=== PATIENT | female | born 1985 ===

== ENCOUNTER 2020-05-19 21:50 | Emergency (ER) | payer SELFPAY ==
[~2020-05-19] VITALS: Ht 167.6 cm; Wt 60.0 kg
[2020-05-19 22:27] VITALS: BP 116/70
--- NOTE | 2020-05-19 23:13 | PHYS DOC ---
Past Medical History Past Medical History: No Pertinent History Past Surgical History: , Other Additional Past Surgical Histo: Kidney stents Smoking Status: Current Every Day Smoker Alcohol Use: None General Adult EDM: Chief Complaint: ABSCESS HPI: HPI: Patient is a 34 year old [f__sex] who presents with [] Review of Systems: Review of Systems: Constitutional: Denies fever or chills. [] Eyes: Denies change in visual acuity. [] HENT: Denies nasal congestion or sore throat. [] Respiratory: Denies cough or shortness of breath. [] Cardiovascular: Denies chest pain or edema. [] GI: Denies abdominal pain, nausea, vomiting, bloody stools or diarrhea. [] : Denies dysuria. [] Musculoskeletal: Denies back pain or joint pain. [] Integument: Denies rash. [] Neurologic: Denies headache, focal weakness or sensory changes. [] Endocrine: Denies polyuria or polydipsia. [] Lymphatic: Denies swollen glands. [] Psychiatric: Denies depression or anxiety. [] Heart Score: Risk Factors: Risk Factors: DM, Current or recent (<one month) smoker, HTN, HLP, family history of CAD, obesity. Risk Scores: Score 0 - 3: 2.5% MACE over next 6 weeks - Discharge Home Score 4 - 6: 20.3% MACE over next 6 weeks - Admit for Clinical Observation Score 7 - 10: 72.7% MACE over next 6 weeks - Early Invasive Strategies Physical Exam: PE: Constitutional: Well developed, well nourished, no acute distress, non-toxic appearance. [] HENT: Normocephalic, atraumatic, bilateral external ears normal, oropharynx moist, no oral exudates, nose normal. [] Eyes: PERRLA, EOMI, conjunctiva normal, no discharge. [] Neck: Normal range of motion, no tenderness, supple, no stridor. [] Cardiovascular:Heart rate regular rhythm, no murmur [] Lungs & Thorax: Bilateral breath sounds clear to auscultation [] Abdomen: Bowel sounds normal, soft, no tenderness, no masses, no pulsatile masses. [] Skin: Warm, dry, no erythema, no rash. [] Back: No tenderness, no CVA tenderness. [] Extremities: No tenderness, no cyanosis, no clubbing, ROM intact, no edema. [] Neurologic: Alert and oriented X 3, normal motor function, normal sensory function, no focal deficits noted. [] Psychologic: Affect normal, judgement normal, mood normal. [] Current Patient Data: Vital Signs: Vital Signs Date Time Temp Pulse Resp B/P (MAP) Pulse Ox O2 Delivery O2 Flow Rate FiO2 05/19/20 22:27 98.1 77 18 116/70 (85) 99 Room Air 98.1 EKG: EKG: [] Radiology/Procedures: Radiology/Procedures: [] Course & Med Decision Making: Course & Med Decision Making Pertinent Labs and Imaging studies reviewed. (See chart for details) [] Dragon Disclaimer: [employer] Disclaimer: This electronic medical record was generated, in whole or in part, using a voice recognition dictation system. Departure Departure Impression: Primary Impression: Shingles rash Qualified Codes: B02.9 - Zoster without complications Additional Impression: Abscess Disposition: 01 DC HOME SELF CARE/HOMELESS Condition: IMPROVED Referrals: NO PCP (PCP) Patient Instructions: Abscess, Shingles Additional Instructions: Take medications as prescribed, see your doctor soon, return to the emergency department for worsening symptoms or concerns. EMERGENCY DEPARTMENT GENERAL DISCHARGE INSTRUCTIONS Thank you for coming to [facility] Emergency Department (ED) today and trusting us with you care. We trust that you had a positive experience in our Emergency Department. If you wish to speak to the department management, you may call the Director at [phone]. YOUR FOLLOW UP INSTRUCTIONS ARE FOLLOWS: 1. Do you have a private Doctor? If you do not have a private doctor, please ask for a resource list of physicians or clinics that may be able to assist you with follow up care. 2. The Emergency Physicain has interpreted your x-rays. The X-Ray specialist will also review them. If there is a change in the findings, you will be notified in 48 hours when at all possible. 3. A lab test or culture has been done, your results will be reviewed and you will be notified if you need a change in treatment. ADDITIONAL INSTRUCTIONS AND INFORMATION: 1. Your care today has been supervised by a physician who is specially trained in emergency care. Many problems require more than one evaluation for a complete diagnosis and treatment. We recommend that you schedule your follow up appointment as recommended to ensure complete treatment of you illness or injury. If you are unable to obtain follow up care and continue to have a problem, or if your condition worsens, we recommend that you return to the ED. 2. We are not able to safely determine your condition over the phone nor are we able to give sound medical advice over the phone. For these safety reasons, if you call for medical advice we will ask you to come to the ED for further evaluation. 3. If you have any questions regarding these discharge instructions please call the ED at [phone]. SAFETY INFORMATION: In the interest of safety, wellness, and injury prevention; we encourage you to wear your sealbelt, if you smoke; quite smoking, and we encourage family to use a protective helmet for bicycling and other sporting events that present an increased risk for head injury. IF YOUR SYMPTOMS WORSEN OR NEW SYMPTOMS DEVELOP, OR YOU HAVE CONCERNS ABOUT YOUR CONDITION; OR IF YOUR CONDITION WORSENS WHILE YOU ARE WAITING FOR YOUR FOLLOW UP APPOINTMENT; EITHER CONTACT YOUR PRIMARY CARE DOCTOR, THE PHYSICIAN WHOSE NAME AND NUMBER YOU WERE GIVEN, OR RETURN TO THE ED IMMEDIATELY. Scripts Mupirocin (MUPIROCIN OINTMENT) 22 Gm Oint...g. 1 GUY TP TID for WOUND CARE, #1 TUBE 0 Refills Prov: MARIA TERESA CASTRO APRN 05/20/20 Sulfamethoxazole/Trimethoprim (BACTRIM DS TABLET) 1 Each Tablet 1 TAB PO BID for SKIN INFECTION for 10 Days, #20 TAB 0 Refills Prov: MARIA TERESA CASTRO APRN 05/20/20 Acyclovir (ACYCLOVIR) 800 Mg Tablet 1 TAB PO 5XDAY for 10 Days, #50 TAB 0 Refills Prov: MARIA TERESA CASTRO APRN 05/20/20 MARIA TERESA CASTRO APRN May 19, 2020 23:13
[2020-05-20] MEDS ORDERED: MUPI22OI2 TP (00:16)
[2020-05-20] MEDS ORDERED: ACYC800T PO (00:16)
[2020-05-20] MEDS ORDERED: SULF1TAB24 PO (00:16)
[2020-05-20] MEDS ORDERED: MUPIROCIN 2 % TOPICAL CREAM 30GM TUBE. TP SCH (01:00)
[2020-05-20] MEDS ORDERED: SMZ/TMP 800/160MG TABLET. PO ONE (01:00)
[2020-05-20] MEDS ORDERED: ACYCLOVIR 200 MG CAPSULE. PO SCH (01:00)
== END 2020-05-20 00:36 | disposition home or self-care (01) ==
LOC: ER 21:50
DX: L02.415 Cutaneous abscess of right lower limb (principal); B02.9 Zoster without complications; F17.200 Nicotine dependence, unspecified, uncomplicated; Z86.14 Personal history of Methicillin resistant Staphylococcus aureus infection
CPT/HCPCS: 99284

== ENCOUNTER 2020-06-01 14:29 | Emergency (ER) | payer SELFPAY ==
[~2020-06-01] VITALS: Ht 167.6 cm; Wt 59.0 kg
[~2020-06-01 14:29] MED LIST: ACYC800T PO; MUPI22OI2 TP; SULF1TAB24 PO
[2020-06-01 15:10] VITALS: BP 129/76
--- NOTE | 2020-06-01 15:23 | ED.ADGEN ---
Past Medical History Past Medical History: Kidney Infection, Kidney Stone Past Surgical History: , Other Additional Past Surgical Histo: Kidney stents Smoking Status: Current Every Day Smoker Alcohol Use: None Drug Use: None General Adult EDM: Chief Complaint: MECHANICAL FALL HPI: HPI: Patient is a 34 year old female who presents to the emergency department with complaints of bruising, swelling, and pain to her right orbit, right shoulder/upper arm pain, left hip/femur pain and multiple abrasions and bruises after falling 3 to 4 feet off of a porch last night. Patient states she landed on her right side, she denies any loss of consciousness, neck pain, vomiting, abdominal pain, confusion, vision changes, dizziness, or shortness of breath. She states that her last tetanus shot was less than 5 years ago. Patient states that her foot got caught up in a hose that was on the porch and that is what caused her fall. She currently rates her pain a 10 out of 10 on the pain scale, she denies any alleviating or exacerbating factors. The patient states that she has felt nauseated but denies any numbness, tingling, weakness or vomiting. Review of Systems: Review of Systems: Complete ROS is negative unless otherwise noted in HPI. Allergies: Allergies: Allergies Coded Allergies Type Severity Reaction Last Updated Verified No Known Drug Allergies 05/20/20 No Physical Exam: PE: See Above Constitutional: Well developed, well nourished, no acute distress, non-toxic appearance. [] HENT: Normocephalic, atraumatic, bilateral external ears normal, nose normal. [] Eyes: PERRLA, EOMI, conjunctiva normal, no discharge; tenderness to palpation over right lateral orbit. [] Neck: Normal range of motion, no tenderness, supple, no stridor. [] Cardiovascular:Heart rate regular rhythm Lungs & Thorax: Respirations even and unlabored, no retractions, no respiratory distress Skin: Warm, dry; abrasions noted to bilateral arms near the elbows; Right inner elbow abrasion has surrounding erythema, warmth, and edema concerning for infection; no active bleeding; hematomas noted to the right orbit, bilateral hips, and bilateral elbows. [] Back: No tenderness Extremities: Right shoulder: lateral tenderness to palpation without crepitus or obvious deformity, ROM limited due to pain, no edema, sensation intact Right humerus: proximal tenderness to palpation, no obvious deformity, no edema Right elbow; lateral tenderness to palpation without obvious deformity or crepitus, no edema, PMS intact Left elbow: Lateral TTP, no crepitus or obvious deformity, no cyanosis, no edema, PMS intact Left hip: lateral tenderness to palpation without obvious deformit y/shortening/rotation, no crepitus, PMS intact Left femur: muscluar TTP, no crepitus or obvious deformity, Neurologic: Alert and oriented X 3, normal motor function, normal sensory function, no focal deficits noted. [] Psychologic: Affect normal, judgement normal, mood normal. [] Current Patient Data: Labs: Laboratory Tests Test 06/01/20 15:38 06/01/20 15:42 Urine Collection Type Unknown Urine Color Yellow Urine Clarity Cloudy Urine pH 7.0 (<5.0-8.0) Urine Specific Portal 1.025 (1.000-1.030) Urine Protein Negative mg/dL (NEG-TRACE) Urine Glucose (UA) Negative mg/dL (NEG) Urine Ketones (Stick) 15 mg/dL (NEG) Urine Blood Negative (NEG) Urine Nitrite Negative (NEG) Urine Bilirubin Small (NEG) Urine Urobilinogen Dipstick 2.0 mg/dL (0.2 mg/dL) Urine Leukocyte Esterase Small (NEG) Urine RBC 0 /HPF (0-2) Urine WBC 5-10 /HPF (0-4) Urine Squamous Epithelial Cells Many /LPF Urine Amorphous Sediment Present /HPF Urine Bacteria Many /HPF (0-FEW) Urine Mucus Mod /LPF POC Urine HCG, Qualitative Hcg negative (Negative) Vital Signs: Vital Signs Date Time Temp Pulse Resp B/P (MAP) Pulse Ox O2 Delivery O2 Flow Rate FiO2 06/01/20 15:10 88 16 129/76 (93) 99 Room Air EKG: EKG: [] Heart Score: Risk Factors: Risk Factors: DM, Current or recent (<one month) smoker, HTN, HLP, family history of CAD, obesity. Risk Scores: Score 0 - 3: 2.5% MACE over next 6 weeks - Discharge Home Score 4 - 6: 20.3% MACE over next 6 weeks - Admit for Clinical Observation Score 7 - 10: 72.7% MACE over next 6 weeks - Early Invasive Strategies Radiology/Procedures: Radiology/Procedures: PROCEDURE: SHOULDER 2+V RIGHT EXAM: XR SHOULDER_RIGHT 2+ VIEWS, XR HUMERUS_RT 2 VIEWS, XR BILATERAL HIP (WITH OR WITHOUT PELVIS) LEFT 2 VIEWS 06/01/2020 3:09 PM CLINICAL INDICATION: Right shoulder and humerus pain after fall, left hip pain after fall COMPARISON: None TECHNIQUE: 2 views of the right humerus, 3 views of the right shoulder, one view the pelvis and 2 views of the left hip FINDINGS: Right humerus: No acute fracture. Alignment is normal. Soft tissues normal. Right shoulder: No acute fracture. Alignment is normal. Acromioclavicular and glenohumeral joints are maintained. Visualized right hemithorax is normal. Left hip: No acute fracture. The hip joint spaces are maintained. There is no pubic symphysis or sacroiliac joint widening. Lower lumbar spine is unremarkable. IMPRESSION: No acute osseous abnormality of the right shoulder or humerus, or left hip. PROCEDURE: CT MAXILLOFACIAL WO CONTRAST Exam: CT maxillofacial without contrast INDICATION: Right orbital edema and burning after fall off report shouldn't last night TECHNIQUE: Sequential axial images through the face obtained without IV contrast. Sagittal and coronal reformatted images were reconstructed from the axial data and reviewed. Comparisons: None FINDINGS: Visualized intracranial structures are unremarkable. There is mild preseptal edema overlying the right orbit. Globes and intraorbital contents are normal. Paranasal sinuses and mastoid air cells are well-pneumatized. No acute fractures are identified. IMPRESSION: Mild preseptal edema overlying the right orbit. Underlying globe and intraorbital contents are normal. No acute osseous abnormality identified. [] Course & Med Decision Making: Course & Med Decision Making Pertinent Labs and Imaging studies reviewed. (See chart for details) 34-year-old female presented to the ER with multiple complaints after a reported fall from a porch last night. Xrays of the Right shoulder, R humerus, and left hip were negative for any acute fracture or findings. Ct maxillofacial was also negative for any acute findings or fracture. UA was concerning for a UTI The abrasion on the right inner forearm appeared to be more of a burn than an abrasion. I advised the patient that the area appears infected and looks more like a burn than an abrasion. I advised the patient that I felt her injuries are not consistent with a fall and asked the patient if she is safe at this time. PT denies any abuse and reports that she is safe. Prescriptions were written for cephalexin, naproxen, and flexeril. PT was encouraged to apply ice to sore areas as needed for comfort and encouraged to follow up with Dr. Gibson if pain persisted. Recommend follow up with her PCP for reevaluation of her UTI. PT verbalized an understanding of home care, medications, follow-up, and return to ED instructions and was in agreement with the plan of care. []I have reviewed the PA/AUTOMATIC TELLER MACHINE SERVICER's note and Plan of Care. I was available for consultation as needed during the patient's visit in the emergency department. I agree with the clinical impression, plans and disposition. Dragon Disclaimer: [employer] Disclaimer: This electronic medical record was generated, in whole or in part, using a voice recognition dictation system. Departure Departure Impression: Primary Impression: Multiple contusions Additional Impressions: Right shoulder pain Left hip pain Periorbital hematoma of right eye Fall UTI (urinary tract infection) Disposition: 01 DC HOME SELF CARE/HOMELESS Condition: STABLE Referrals: NO PCP (PCP) CORY GIBSON II, MD Patient Instructions: Contusion, [id number], Eye Contusion, Hip Pain, Shoulder Pain, [id number], Urinary Tract Infection, [id number] Additional Instructions: Fill prescription(s) and use as directed. Avoid bladder irritants such as caffeine, carbonation, and spicy foods. Increase clear fluids. Recommend application of ice, elevation, and rest of affected extremities.Follow up with your primary care doctor this week about UTI. Follow up with Dr. Gibson for for persistent joint pain. Return to the ER if symptoms worse or fever develops. Scripts Cephalexin (CEPHALEXIN) 500 Mg Capsule 1 CAP PO QID for 7 Days, #28 CAP 0 Refills Prov: SYLVESTER STILES THERMAL TECHNICIAN 06/01/20 Cyclobenzaprine Hcl (CYCLOBENZAPRINE HCL) 10 Mg Tablet 1 TAB PO TID for 10 Days, #30 TAB Prov: SYLVESTER STILES THERMAL TECHNICIAN 06/01/20 Naproxen (NAPROXEN) 500 Mg Tablet 1 TAB PO BID PRN for PAIN for 10 Days, #20 TAB 0 Refills Prov: SYLVESTER STILES THERMAL TECHNICIAN 06/01/20 Problem Qualifiers Additional Impressions: Right shoulder pain Chronicity: acute Qualified Codes: M25.511 - Pain in right shoulder Fall Encounter type: initial encounter Qualified Codes: W19.XXXA - Unspecified fall, initial encounter UTI (urinary tract infection) Urinary tract infection type: acute cystitis Hematuria presence: without hematuria Qualified Codes: N30.00 - Acute cystitis without hematuria SYLVESTER STILES APRN Jun 01, 2020 15:23 CIRO WATTS MD Jun 02, 2020 06:24
--- NOTE | 2020-06-01 15:43 | RAD ---
EXAM: XR SHOULDER_RIGHT 2+ VIEWS, XR HUMERUS_RT 2 VIEWS, XR BILATERAL HIP (WITH OR WITHOUT PELVIS) L EFT 2 VIEWS 06/01/2020 3:09 PM CLINICAL INDICATION: Right shoulder and humerus pain after fall, left hip pain after fall COMPARISON: None TECHNIQUE: 2 views of the right humerus, 3 views of the right shoulder, one view the pelvis and 2 vi ews of the left hip FINDINGS: Right humerus: No acute fracture. Alignment is normal. Soft tissues normal. Right shoulder: No acute fracture. Alignment is normal. Acromioclavicular and glenohumeral joints are maintained. Visualized right hemithorax is normal. Left hip: No acute fracture. The hip joint spaces are maintained. There is no pubic symphysis or sacr oiliac joint widening. Lower lumbar spine is unremarkable. IMPRESSION: No acute osseous abnormality of the right shoulder or humerus, or left hip. Electronically signed by: Trinh Mendoza MD (06/01/2020 3:40 PM) [id number]
[2020-06-01 15:52] LABS: BILIRUBIN,URINE SMALL (NEG); CLARITY,URINE CLOUDY; COLOR,URINE YELLOW; NITRITE,URINE NEGATIVE (NEG); PROTEIN,URINE NEGATIVE (NEG-TRACE)
[2020-06-01 16:09] LABS: AMORPHOUS SEDIMENT,UR PRESENT /HPF
[2020-06-01 16:10] LABS: BACTERIA,URINE MANY /HPF (0-FEW); RBC,URINE 0 /HPF (0-2)
--- NOTE | 2020-06-01 16:22 | RAD ---
Exam: CT maxillofacial without contrast INDICATION: Right orbital edema and burning after fall off report shouldn't last night TECHNIQUE: Sequential axial images through the face obtained without IV contrast. Sagittal and quintana l reformatted images were reconstructed from the axial data and reviewed. Comparisons: None FINDINGS: Visualized intracranial structures are unremarkable. There is mild preseptal edema overlying the right orbit. Globes and intraorbital contents are normal. Paranasal sinuses and mastoid air cells are well-pneumatized. No acute fractures are identified. IMPRESSION: Mild preseptal edema overlying the right orbit. Underlying globe and intraorbital contents are normal . No acute osseous abnormality identified. Exposure: One or more of the following in the visualized dose reduction techniques were utilized for this examination: 1. Automated exposure control 2. Adjustment of the MA and/or KV according to patient size 3. Use of iterative of reconstructive technique Electronically signed by: Dejon Wolfe MD (06/01/2020 4:20 PM) [facility]
[2020-06-01] MEDS ORDERED: CEPH-264 PO (17:18)
[2020-06-01] MEDS ORDERED: NAPR-514 PO (17:21)
[2020-06-01] MEDS ORDERED: CYCL10TA2 PO (17:21)
[2020-06-01] MEDS ORDERED: CEPH500C PO (17:21)
== END 2020-06-01 18:08 | disposition home or self-care (01) ==
LOC: ER 14:29
DX: S05.11XA Contusion of eyeball and orbital tissues, right eye, initial encounter (principal); S70.02XA Contusion of left hip, initial encounter; S70.01XA Contusion of right hip, initial encounter; S50.02XA Contusion of left elbow, initial encounter; S50.01XA Contusion of right elbow, initial encounter; F17.200 Nicotine dependence, unspecified, uncomplicated; W17.89XA Other fall from one level to another, initial encounter; Y93.89 Activity, other specified; Y92.89 Other specified places as the place of occurrence of the external cause; Y99.8 Other external cause status
CPT/HCPCS: 70486; 73030; 73060; 73502; 81001; 81025; 87086; 99285-25